=== PATIENT | male | born 1975 | race Caucasian/White ===

== ENCOUNTER 2019-05-10 13:03 | Inpatient (IN) ==
[2019-05-10 14:04] LABS: BILIRUBIN URINE NEGATIVE (NEGATIVE); BLOOD URINE NEGATIVE (NEGATIVE); KETONE URINE 2+(Moderate) mg/dL (NEGATIVE); LEUKOCYTES URINE NEGATIVE (NEGATIVE); NITRITE URINE NEGATIVE (NEGATIVE); PH URINE 6.5; PROTEIN URINE NEGATIVE (NEGATIVE); UROBILINOGEN URINE NORMAL
[2019-05-10 14:05] LABS: CLARITY CLEAR (CLEAR); COLOR YELLOW
[2019-05-10 14:06] LABS: BASO# 0.07 X1000 (0.0-0.2); BASO% 0.4 % (0.0-0.8); EOS# 0.15 X1000 (0.0-0.7); EOS% 0.9 % (0.0-10.0); HEMATOCRIT 41.3 % (42.0-52.0); HEMOGLOBIN 13.6 g/dL (14.0-18.0); IMM GRAN# 0.06 X1000 (0.0-0.04); IMM GRAN% 0.4 % (0.0-0.5); LYMPH# 3.02 X1000 (1.2-3.4); LYMPH% 18.1 % (20.5-51.1); MCHC 32.9 g/dL (33-37); MCV 94.1 FL (81-99); MONO# 1.25 X1000 (0.11-0.59); MONO% 7.5 % (1.7-9.3); MPV 12.3 FL (7.4-10.4); NEUT# 12.16 X1000 (1.4-6.5); NEUT% 72.7 % (42.2-75.2); PLT 195 X1000 (130-400); RBC 4.39 XMIL (4.7-6.1); RDW 14.7 % (11.5-14.5); WBC 16.71 X1000 (4.8-10.8)
[2019-05-10 14:20] LABS: URINE EPITHELIAL CELLS >10 /HPF (<10); URINE RBC <10 /HPF (<10); URINE SOURCE CLEAN CATCH; URINE WBC <10 /HPF (<10)
[2019-05-10 14:21] LABS: URINE BACTERIA 1+ /HFP; URINE CAST NONE SEEN /LPF; URINE CRYSTAL NONE SEEN /HPF; URINE YEAST NONE SEEN /HPF
[2019-05-10 14:35] LABS: ESTIMATED GFR > 60
[2019-05-10 14:48] LABS: AGAP 21; ALBUMIN 3.7 g/dL (3.5-5.0); ALKALINE PHOSPHATASE 122 U/L (32-122); BUN 17 mg/dL (8-22); CALCIUM 8.9 mg/dL (8.8-10.2); CHLORIDE 89 mmol/L (98-107); COSMO 287; CREATININE 1.2 mg/dL (0.7-1.2); GOT 20 U/L (10-34); GPT 29 U/L (10-44); LIPASE 211 U/L (13-60); POTASSIUM 4.6 mmol/L (3.5-5.1); SODIUM 125 mmol/L (136-145); TCO2 16 mmol/L (25-35); TOTAL PROTEIN 7.7 g/dL (6.3-8.3)
[2019-05-10 14:49] LABS: GLUCOSE 709 mg/dL (70-104)
--- NOTE | 2019-05-10 14:50 | PROVIDER DOCUMENTATION ---
HPI-General Adult - General Chief Complaint: Abdominal Pain Stated Complaint: STOMACH PAIN/DIZZY X 3 DAYS Time Seen by Provider: 05/10/19 14:44 Source: patient Allergies/Adverse Reactions: Patient Allergies Allergy/AdvReac Type Severity Reaction Status Date / Time codeine Allergy NAUSEA/VOMI Verified 05/10/19 13:11 TING morphine Allergy NAUSEA/VOMI Verified 05/10/19 13:11 TING Home Medications: Home Medication List Medication Instructions Recorded Confirmed Last Taken Type Amlodipine [Norvasc] 10 mg PO DAILY 05/10/19 05/10/19 Unknown History Diclofenac Sodium 100 mg PO BID 05/10/19 05/10/19 Unknown History Gabapentin 800 mg PO BID 05/10/19 05/10/19 Unknown History Losartan/Hydrochlorothiazide 1 ea PO DAILY 05/10/19 05/10/19 Unknown History [Losartan-Hctz 100-25 mg Tab] PRAVAstatin [Pravachol] 40 mg PO BID 05/10/19 05/10/19 Unknown History Pantoprazole [Protonix] 40 mg PO DAILY@0700 05/10/19 05/10/19 Unknown History Ropinirole [Requip] 1 mg PO HS 05/10/19 05/10/19 Unknown History Sertraline HCl [Zoloft] 100 mg PO DAILY 05/10/19 05/10/19 Unknown History Trazodone HCl 150 mg PO HS 05/10/19 05/10/19 Unknown History - History of Present Illness -Gen Adult Nature of Presenting Problems: Pt. is 44 yom that presents with c/o LUQ abd pain for three days. Pt. states no N/V/D. Pt. reports a fever. Pt. reports a Hx of ulcers. Pt. denies any other complaints. Location of Pain/Injury: reports: abdomen. denies: none, head, face, mouth, nec k, chest, upper extremity, hand(s), back, pelvis, genitalia, lower extremity, feet, upper body, lower body, generalized, other Pain Radiation: reports: no radiation. denies: arm(s), back, buttocks, chest, epigastric, feet, groin, jaw, flank (L), legs (lower), LLQ, LUQ, neck, periumbilical, flank (R), RLQ, RUQ, shoulder(s), scapula, scrotal, sternal notch, suprapubic, legs (upper), urethral, vaginal, other Quality of Pain: reports: aching. denies: burning, pressure, tightness Severity: reports: moderate. denies: mild, severe Onset/Duration: reports: gradual, 2 days ago Timing: reports: still present. denies: improving, resolved prior to arrival, getting worse Context/Activities at Onset: reports: none. denies: light activity, moderate a ctivity, vigorous activity, recent emotional stress, recent physical stress, recent trauma history, possible bad food, cold exposure, eating, out of country travel, rest, sleep, sexual activity, other Modifying Factors: improves with: nothing Associated Symptoms: reports: other (abd pain). denies: denies symptoms, anxiety, arm pain, back/neck pain, chest pain, constipation, cough, diaphoresis, diarrhea, dizziness, EENT symptoms, fatigue, fever/chills, genitourinary prob lems, headaches, heartburn, joint pain, loss of appetite, malaise, muscle aches, sinus congestion/drainage, nausea, rash, seizure, shortness of breath, sensory/motor loss, pain with inspiration, swelling/mass in abdomen, syncope, vomiting, weakness, trouble walking Similar Symptoms Previously?: Yes Recently seen or treated by another doctor?: No Review of Systems - Adult - REVIEW OF SYSTEMS - ADULT Constitutional: reports: no symptoms reported Eyes: reports: no symptoms reported Ears, Nose, Mouth & Throat: reports: no symptoms reported Cardiovascular: reports: no symptoms reported Respiratory: reports: no symptoms reported Gastrointestinal: reports: see HPI, abdominal pain, rectal bleeding. denies: constipation, diarrhea, frequent heartburn, vomiting Genitourinary: reports: no symptoms reported Musculoskeletal: reports: no symptoms reported Integumentary: reports: no symptoms reported Neurological: reports: no symptoms reported Psychiatric: reports: no symptoms reported Past History - Adult - PAST MEDICAL HISTORY-ADULT Review of Records: reports: Old Records Reviewed, Nursing Assessment Review, Medications Reviewed, Social history reviewed & non-contributory. Major Childhood Illnesses: reports: denies history Cardiovascular: reports: HTN Respiratory: reports: denies history Gastrointestinal: reports: denies history Obstetrical/Gynecological: reports: denies history Genitourinary: reports: denies history Musculoskeletal: reports: denies history Neurological: reports: denies history Endocrine/Immune: reports: denies history Other Conditions: reports: denies history - PRIOR SURGERIES/PROCEDURES Surgical/Procedure History: reports: cholecystectomy, other (wisdom teeth) - IMMUNIZATION STATUS Childhood Immunizations: See Nurse Assessment Flu Vaccine: See Nurse Assessment - FAMILY HISTORY Family History: reviewed, not pertinent - SOCIAL HISTORY Smoking: cigarettes, greater than 1 pack/day Provider spent 3-5 mins advising pt. on dangers of tobacco.: Discussed manners to quit use, and f/u contacts for add'l counseling. Physical Exam-General - PHYSICAL EXAM-ADULT Initial Vital Signs Reviewed: Yes - CONSTITUTIONAL General Appearance: alert, mild distress, obese. negative: anxious, obtunded, combative - EYES Eyes: PERRL/EOMI, pink conjunctivae - HEAD, EARS, NOSE, MOUTH & THROAT HENMT: normocephalic/atraumatic, moist mucous membranes - NECK Neck: non-tender, full range of motion, supple, normal inspection - RESPIRATORY Respiratory: lungs clear, normal breath sounds - CARDIOVASCULAR Cardiovascular: regular rate, rhythm, no edema, tachycardia - GASTROINTESTINAL (ABDOMEN) Abdominal Exam: soft, tenderness, hernia. negative: distended, guarding, rigid, rebound, mass - LYMPHATIC Lymphatic: no adenopathy. negative: axilla node tender, cervical node tenderness - MUSCULOSKELETAL Back Exam: normal inspection, no CVA tenderness, no vertebral tenderness Extremity: normal range of motion, non-tender, normal gait, normal inspection Peripheral Pulses: radial (R): 2+, radial (L): 2+ - SKIN Integumentary: normal color, normal turgor, warm/dry - NEUROLOGIC Neurologic: grossly normal, no motor/sensory deficits - PSYCHIATRIC Psych/Mental Status: normal mood/affect, normal thought content, normal thought process, oriented x 3. negative: anxious, paranoid, tearful Progress - PLAN OF CARE/RESULTS Progress/Plan/Lab Results: Vital Signs - 8 hr 05/10/19 13:05 Temperature 97.6 F Pulse Rate 112 H Respiratory Rate 18 Blood Pressure 105/73 O2 Sat by Pulse Oximetry 95 Laboratory Results - last 24 hr 05/10/19 05/10/19 05/10/19 13:32 13:42 13:42 WBC 16.71 H RBC 4.39 L Hgb 13.6 L Hct 41.3 L MCV 94.1 MCH 31.0 MCHC 32.9 L RDW Std Deviation 14.7 H Plt Count 195 MPV 12.3 H Immature Gran % (Auto) 0.4 Neut % (Auto) 72.7 Lymph % (Auto) 18.1 L [place] % (Auto) 7.5 Eos % (Auto) 0.9 Baso % (Auto) 0.4 Immature Gran # (Auto) 0.06 H Neut # (Auto) 12.16 H Lymph # (Auto) 3.02 [place] # (Auto) 1.25 H Eos # (Auto) 0.15 Baso # (Auto) 0.07 Estimated GFR/1.73 m2 Amylase 84 Urine Source CLEAN CATCH Urine Color YELLOW Urine Clarity CLEAR Urine pH 6.5 Ur Specific [place] 1.000 Urine Protein NEGATIVE Urine Ketones 2+(Moderate) A Urine Blood NEGATIVE Urine Nitrite NEGATIVE Urine Bilirubin NEGATIVE Urine Urobilinogen NORMAL Urine Microscopic RBC <10 Urine WBC NEGATIVE Urine Microscopic WBC <10 Ur Epithelial Cells >10 A Urine Crystals NONE SEEN Urine Bacteria 1+ Urine Casts NONE SEEN Urine Yeast NONE SEEN Urine Glucose 3+(500 mg/dL) A 05/10/19 13:42 WBC RBC Hgb Hct MCV MCH MCHC RDW Std Deviation Plt Count MPV Immature Gran % (Auto) Neut % (Auto) Lymph % (Auto) [place] % (Auto) Eos % (Auto) Baso % (Auto) Immature Gran # (Auto) Neut # (Auto) Lymph # (Auto) [place] # (Auto) Eos # (Auto) Baso # (Auto) Estimated GFR/1.73 m2 > 60 Amylase Urine Source Urine Color Urine Clarity Urine pH Ur Specific [place] Urine Protein Urine Ketones Urine Blood Urine Nitrite Urine Bilirubin Urine Urobilinogen Urine Microscopic RBC Urine WBC Urine Microscopic WBC Ur Epithelial Cells Urine Crystals Urine Bacteria Urine Casts Urine Yeast Urine Glucose Orders Category Date Time Status Finger Stick Blood Sugar (ED) DIRECTED Care 05/10/19 13:16 Active Saline Loc DIRECTED Care 05/10/19 13:12 Active NPO Diet 05/10/19 13:[address] ABD/PELVIS W/IV CONT ONLY [CT] Stat Exams 05/10/19 14:46 Ordered AMYLASE [CHEM] Stat Lab 05/10/19 13:42 Completed CBC WITH ELECTRONIC DIFF [HEME] Stat Lab 05/10/19 13:42 Completed COMPREHENSIVE METABOLIC PANEL [CHEM] Stat Lab 05/10/19 13:42 Results LIPASE [CHEM] Stat Lab 05/10/19 13:[address] W/POSS RFLX CULT [URINALYSIS] Stat Lab 05/10/19 13:32 Completed Corrected sodium is 140. Discussed results and plan of care with patient. Patient agrees with plan and verbalizes understanding. Result Diagrams: 05/10/19 13:42 05/10/19 13:42 - CT/MRI 1 CT Study: Abdomen ([facility] - [address] , [address], [place] [address] [facility] - [address] [place] [address] Department of Imaging Patient: KAI SIMMONS [facility] Date: 05/10/19MR#: [id number] : 1975ADM Status: REG ERAcc#: [id number] Age/Sex: 44/MRoom/Bed: Loc: P.ED Ordering Physician: Bo Guan Family Physician: Hunter Hillman Jr, MD Reason for Procedure: LUQ abd pain Signed EXAM: CT ABD/PELVIS W/IV CONT ONLY - 05/10/2019 HISTORY: LUQ abd pain TECHNIQUE: CT abdomen/pelvis with intravenous contrast. No oral contrast administered per request of the referring provider. COMPARISON: None. FINDINGS: There is a 10 mm noncalcified pleural-based nodule at the posterior left lung base. There is hepatomegaly with fatty infiltration of liver. There is no focal liver lesion identified. The spleen and adrenal glands are unremarkable. The gallbladder surgically absent. There are inflammatory changes at the left upper quadrant which appears to originate at the distal pancreas. This is suspicious for acute pancreatitis. There is no discrete pancreatic necrosis or pseudocyst identified. Mass lesion at the pancreatic tail cannot be entirely excluded. The inflammatory changes extend to the nearby splenic flexure of the colon, which contains diverticuli. There is no discrete diverticulitis identified, however. There are additional uncomplicated diverticuli along the left colon. The bilateral kidneys enhance homogeneously. There is no hydronephrosis. There are no substantially enlarged lymph nodes identified. There is mild ectasia of the distal aorta at 2.7 cm. There is no evidence of bowel obstruction. The appendix is unremarkable. There is no free air, substantial free fluid, or abscess identified. IMPRESSION: Inflammatory changes at left upper quadrant. These appear to originate at the tail of the pancreas and are suspicious for acute pancreatitis. There is no discrete pancreatic necrosis or pseudocyst identified. The possibility of mass lesion at the pancreatic tail cannot be entirely excluded, however. The left upper quadrant inflammatory changes extend to the nearby splenic flexure the the colon, which has diverticulosis. There is no discrete diverticulitis identified, however. Hepatomegaly with fatty infiltration of liver. Nonspecific 1 cm noncalcified nodule at posterior left lung base. This exam was performed using automated exposure control, adjustment of mA or kV according to patient size, and/or use of iterative reconstruction technique. Electronically signed by Ozzie Burk 05/10/2019 4:55 PM 05/10/19 1655 Interpreting Physician: Ozzie Burk MD Dictated Date/Time: 05/10/19 1642 cc: Bo Guan; Hunter Hillman Jr, MD), Pelvis CT Results: See note - CONSULTS/PCP/HOSPITALIST Notification #1 *Consult/PCP/Hospitalist*: Summer for Dr. Horne Time Discussed: 17:12 Reason/Comments: Admission Consult Disposition: Will see in ED, Admit Departure - Departure Date of Disposition Decision: 05/10/19 Time of Disposition Decision: 17:07 DIAGNOSIS: Hyperglycemia Pancreatitis Qualifiers: Chronicity: acute Pancreatitis type: unspecified pancreatitis type Acute p ancreatitis complication: unspecified Qualified Code(s): K85.90 - Acute pancreatitis without necrosis or infection, unspecified Leukocytosis Qualifiers: Leukocytosis type: unspecified Qualified Code(s): D72.829 - Elevated white blood cell count, unspecified Disposition: ADMITTED INPATIENT 09 Certified Medical Emergency: Emergent Condition: Stable Referrals and Follow-Ups: Hunter Hillman Jr, MD [Primary Care Provider] - - Critical Care Note This patient required my direct & personal management of CC.: Yes Total Time (mins): 35 Critical Care Statement: This patient required my direct personal management to treat or rule out processes, the absence of which, could potentiallly result in sudden, clinically significant life or limb threatening deterioration. Attestation - Physician/ ROSY Attestation Patient care was provided by Advanced Practice Provider:: Yes Advanced Practice Provider:: Bo Guan Advanced Practice Provider documentation review:: The Mid-level provider documentation, treatment plan and medical decision making was reviewed by the physician who agrees with all treatment and medical decision making by the MLP. The physician spent face to face time with patient:: No Advanced Practice Provider documentation review:: Supervising physician onsite and consulted in the evaluation and care of this patient. The physician did not have a face to face encounter with the patient.
[2019-05-10] MEDS ORDERED: ZOFRAN IV ONE (15:02)
[2019-05-10] MEDS ORDERED: NS 1,000 ML IV ONE (15:02)
[2019-05-10] MEDS ORDERED: HUMULIN R IV ONE (15:03)
[2019-05-10] MEDS ORDERED: HUMULIN R (PARKWAY) ONE (15:45)
[2019-05-10 16:13] LABS: BE -7.4 mmoll (-3.0-3.0); BLOOD TYPE ARTERIAL; HCO3-(ACT) 18.9 mmoll (20.0-26.0); METHB 0.2 % (0.0-1.5); PCO2(98.6) 27 mmHg (35-45); PO2(98.6) 74 mmHg (60-100); SAMPLE BLOOD; SAO2 94.3 % (95.0-100.0); THB 14.7 g/dL (11.5-17.4); pH(98.6) 7.38 (7.35-7.45)
[2019-05-10 16:18] LABS: MODALITY ROOM AIR; O2(CT) 18.5 mL/dL (15.0-23.0); O2HB 89.4 % (95.0-99.0)
[2019-05-10 16:19] LABS: ALLEN TEST YES
--- NOTE | 2019-05-10 16:57 | Diag Imaging Result Doc PS360 ---
EXAM: CT ABD/PELVIS W/IV CONT ONLY - 05/10/2019 HISTORY: LUQ abd pain TECHNIQUE: CT abdomen/pelvis with intravenous contrast. No oral contrast administered per request of the referring provider. COMPARISON: None. FINDINGS: There is a 10 mm noncalcified pleural-based nodule at the posterior left lung base. There is hepatomegaly with fatty infiltration of liver. There is no focal liver lesion identified. The spleen and adrenal glands are unremarkable. The gallbladder surgically absent. There are inflammatory changes at the left upper quadrant which appears to originate at the distal pancreas. This is suspicious for acute pancreatitis. There is no discrete pancreatic necrosis or pseudocyst identified. Mass lesion at the pancreatic tail cannot be entirely excluded. The inflammatory changes extend to the nearby splenic flexure of the colon, which contains diverticuli. There is no discrete diverticulitis identified, however. There are additional uncomplicated diverticuli along the left colon. The bilateral kidneys enhance homogeneously. There is no hydronephrosis. There are no substantially enlarged lymph nodes identified. There is mild ectasia of the distal aorta at 2.7 cm. There is no evidence of bowel obstruction. The appendix is unremarkable. There is no free air, substantial free fluid, or abscess identified. IMPRESSION: Inflammatory changes at left upper quadrant. These appear to originate at the tail of the pancreas and are suspicious for acute pancreatitis. There is no discrete pancreatic necrosis or pseudocyst identified. The possibility of mass lesion at the pancreatic tail cannot be entirely excluded, however. The left upper quadrant inflammatory changes extend to the nearby splenic flexure the the colon, which has diverticulosis. There is no discrete diverticulitis identified, however. Hepatomegaly with fatty infiltration of liver. Nonspecific 1 cm noncalcified nodule at posterior left lung base. This exam was performed using automated exposure control, adjustment of mA or kV according to patient size, and/or use of iterative reconstruction technique. Electronically signed by Ozzie Burk 05/10/2019 4:55 PM
[2019-05-10] MEDS ORDERED: ZOFRAN IV PRN (18:07)
[2019-05-10] MEDS ORDERED: SODIUM CHLORIDE 0.9% INJ SCH (18:15)
[2019-05-10] MEDS ORDERED: PROTONIX IV SCH (18:15)
--- NOTE | 2019-05-10 18:35 | HISTORY AND PHYSICAL ---
ADDENDUM: I saw the patient [id number] while patient was there at the emergency department and fully agree with the assessment, plan of nurse practitioner Emma Santo. This is a 44-year-old gentleman who presented emergency room with epigastric discomfort and has been found to have leukocytosis along with significant diabetes with glucose of 700, amylase levels are normal at 84 but lipase levels are elevated 201. CT scan of abdomen, pelvis was obtained that showed inflammatory changes at left upper quadrant which appeared to originate at the tail of the pancreas and are suspicious for acute pancreatitis. The patient will be admitted to intensive care unit and will be treated with subcutaneous insulin along with judicious IV fluids and broad- spectrum antibiotics along with opioid analgesics. We will keep him NPO and monitor him over there. Further recommendation will be as per hospital course. cc: Burton Horne MD
[2019-05-10] MEDS: HUMULIN R (PARKWAY) SUBQ SCH ×3 (18:36→22:30)
[2019-05-10] MEDS: NS 1,000 ML IV SCH (18:37)
[2019-05-10] MEDS: ZOSYN 3.375 GM in NS 50 ML IV SCH (18:37)
--- NOTE | 2019-05-10 19:40 | HISTORY AND PHYSICAL ---
PRIMARY CARE: Dr. Hillman. CHIEF COMPLAINT: Abdominal pain. HISTORY OF PRESENT ILLNESS: Mr. Grant is a 44-year-old male who states that he started having abdominal pain 3 days ago. He states that his pain is a sharp pain. It is in the left side of his abdomen. He denies any chest pain. He denies any nausea, vomiting, or diarrhea. He states he has had some blurred vision. He denies any dysuria or hematuria. He denies any constipation. He states he does occasionally have some blood in his stool and he is noted to have hemorrhoids. The patient does have a past medical history of pancreatitis, GERD, hypertension, hyperlipidemia, arthritis, and peripheral neuropathy. The patient is not having any shortness of breath at this time. He is stating he is having less abdominal pain. His abdomen is very tender to the touch. Laboratory findings in the ER show a white blood cell count of 16.71. Blood gases show CO2 of 27, bicarb of 18.9, oxyhemoglobin of 89.4, and a carboxyhemoglobin of 5, with O2 saturation of 94.3. Chemistry shows a sodium of 125, a chloride of 89, BUN is 17, and creatinine of 1.2, glucose of 709, lipase of 211, amylase of 84. CT of the abdomen and pelvis shows inflammatory changes of the left upper quadrant that appear to originate at the tail of the pancreas, and are suspicious for acute pancreatitis. PAST MEDICAL HISTORY: 1. GERD. 2. Pancreatitis. 3. Hypertension. 4. Hyperlipidemia. 5. Arthritis. 6. Peripheral neuropathy. 7. Chronic pain. PAST SURGICAL HISTORY: Cholecystectomy. FAMILY HISTORY: Not significant at this time. SOCIAL HISTORY: The patient states that he smokes 1 pack of cigarettes per day and has for greater than 30 years. The patient states he used to drink alcohol, but he quit 10 years ago. He denies any illicit drug abuse. ALLERGIES: Codeine, morphine. MEDICATIONS: 1. Protonix 40 mg p.o. daily. 2. Norvasc 10 mg p.o. daily. 3. Diclofenac sodium 100 mg p.o. b.i.d. 4. Gabapentin 800 mg p.o. b.i.d. 5. Pravachol 40 mg p.o. b.i.d. 6. Requip 1 mg p.o. at bedtime. 7. Zoloft 100 mg p.o. daily. 8. Losartan/hydrochlorothiazide 100/25 mg p.o. daily. 9. Trazodone 150 mg p.o. at bedtime. LABS AND DIAGNOSTICS: Sodium 125, potassium 4.6, chloride 89, carbon dioxide 16, anion gap 21, BUN 17, creatinine 1.2, estimated GFR greater than 60, glucose is 709, calcium is 8.9, total bilirubin is 0.7, AST is 20, ALT is 29, alkaline phosphatase is 122, amylase is 84, lipase is 211. White blood cell count is 16.71, red blood cell count is 4.39, hemoglobin is 13.6, hematocrit is 41.3, platelet count is 195,000. Blood gas: PH is 7.38, CO2 27, pO2 is 74, bicarb is 18.9, oxyhemoglobin is 89.4, carboxyhemoglobin is 5, O2 saturation is 94.3%. Lactate is 1.5. This is on room air. Urinalysis shows ketones to be 2+, bacteria is 1+, glucose is 3+. CT of the abdomen and pelvis shows inflammatory changes of the left upper quadrant, and these appear to originate at the tail of the pancreas and are suspicious of acute pancreatitis. There is no discrete pain, pancreatic necrosis, or pseudocyst identified. The possibility of mass lesion of the pancreatic tail cannot be entirely excluded, however. In the left upper quadrant, inflammatory changes extend to the nearby splenic flexure to the colon which has diverticulosis. There is no discrete diverticulitis identified. Hepatomegaly with fatty infiltration of the liver. A nonspecific 1 cm noncalcified nodule at the posterior left lung base. REVIEW OF SYSTEMS: A 10 point review of systems has been obtained. All are negative except for as stated above in HPI. PHYSICAL EXAMINATION: VITAL SIGNS: Temperature 97.6 degrees, pulse rate 108, respiratory rate 24, blood pressure 120/75, O2 saturation 93% on room air, weight 320 pounds, height 5 feet 11 inches. GENERAL: This is a 44-year-old male who is obese, who is lying in the ER stretcher. He is well nourished, well developed. He is in no acute distress. HEENT: Atraumatic, normocephalic. Pupils equal, round, reactive to light. Sclerae anicteric. Mucous membranes are moist. NECK: Supple. No lymphadenopathy. Trachea is midline. No JVD. No thyromegaly. No bruits. CARDIOVASCULAR: Regular rate and rhythm. No murmurs, gallops, or rubs appreciated. RESPIRATORY: Lung sounds are clear with equal chest excursion. Respirations are nonlabored. No accessory muscle usage. GI: Abdomen is soft. It is tender to the left side. It is nondistended. Bowel sounds are present x4. NEUROLOGIC: Cranial nerves 2 through 12 are intact. The patient is awake, alert, oriented, and able to follow all commands appropriately. MUSCULOSKELETAL: Full distal strength noted. No abnormalities in gait. No deformities. EXTREMITIES: No clubbing, no cyanosis, no edema. DP and PT pulses are present and palpable. SKIN: Warm, dry, and intact. No rashes, bruises, diaphoresis noted. ASSESSMENT AND PLAN: 1. Acute pancreatitis. We are going to admit this patient to the ICU unit. We are going to place him on intravenous fluid hydration of normal saline at 125 mL an hour. He did receive a 1L bolus in the emergency room. We are going to repeat his labs in the morning and a chest x- ray. We are going to provide him with Dilaudid 0.5 mg every 4 to 6 hours as needed for his pain. We are going to keep him at nothing by mouth at this time. He can have a sip of water with his oral medications, but otherwise needs to be nothing by mouth. He does have Zofran ordered for his nausea. 2. Hyperglycemia. The patient is not a known diabetic. We are going to start him on fingerstick blood sugar checks every 2 hours. I provided him with sliding scale Humulin insulin, moderate scale. I am going to check an A1c on this patient to see if it does come back to be elevated. Likely, this is due to his pancreatitis. 3. Leukocytosis. The patient has a white blood cell count elevated at 16.71. We have started him on Zosyn for intravenous antibiotics. I have also started him on intravenous fluid hydration. The likely source is his pancreatitis. 4. Hyponatremia. We are starting the patient on normal saline at 125 mL an hour. He did receive a 1 L bolus of normal saline in the emergency room. We are going to recheck his labs in the morning. We will be observing this patient in the ICU. 5. Obesity. 6. Hypertension. I have restarted his home medications for his blood pressure. His blood pressure is stable at this time. However, he did not take any medications this morning. 7. Peripheral neuropathy. I have restarted his home Neurontin. 8. Gastroesophageal reflux disease. The patient is on Protonix at home. I have restarted his home Protonix. This should cover his gastrointestinal prophylaxis. 9. Arthritis. The patient does take diclofenac at home for his arthritis. I have restarted this medication. He can also have Dilaudid for his pain in his abdomen for the pancreatitis to help with his arthritis also. 10. Deep venous thrombosis prophylaxis. I have started this patient on Lovenox daily. We are going to admit this patient to the ICU unit. We will place him on a personnel monitor. We are going to repeat his labs in the morning and a chest x-ray. We are going to provide him with intravenous fluid hydration and start him on intravenous antibiotics for his pancreatitis. We are going to give him Dilaudid for pain control. We are going to be rechecking his blood sugars every 2 hours and providing him with sliding scale insulin. I am going to check a hemoglobin A1c on this patient. We are going to keep this patient at nothing by mouth at this time. He can have a sip of water with his medications. He can also have Zofran for nausea. Dictated by CAMACHO Jean-Baptiste for Burton Horne MD cc: MD Dr. Rafy Adame
[2019-05-10] MEDS ORDERED: NS 100 ML ONE (20:46)
[2019-05-10] MEDS ORDERED: PRAVACHOL PO SCH (21:00)
[2019-05-10] MEDS: LOVENOX SUBQ SCH (21:55)
[2019-05-10] MEDS: NICODERM PATCH TD SCH (21:55)
[2019-05-10] MEDS: DESYREL PO SCH (21:56)
[2019-05-10] MEDS: REQUIP PO SCH (21:57)
[2019-05-10] MEDS: PRAVACHOL PO SCH (21:57)
[2019-05-10] MEDS: NEURONTIN PO SCH (21:57)
[2019-05-10 22:01] LABS: ESTIMATED GFR > 60
[2019-05-10 22:10] LABS: AGAP 13; ALBUMIN 3.6 g/dL (3.5-5.0); ALKALINE PHOSPHATASE 105 U/L (32-122); BUN 16 mg/dL (8-22); CALCIUM 8.7 mg/dL (8.8-10.2); CHLORIDE 99 mmol/L (98-107); COSMO 287; CREATININE 1.2 mg/dL (0.7-1.2); GOT 16 U/L (10-34); GPT 24 U/L (10-44); MAGNESIUM 1.8 mg/dL (1.5-2.7); POTASSIUM 4.5 mmol/L (3.5-5.1); SODIUM 134 mmol/L (136-145); TCO2 22 mmol/L (25-35); TOTAL PROTEIN 7.2 g/dL (6.3-8.3)
[2019-05-10 22:12] LABS: GLUCOSE 416 mg/dL (70-104)
[2019-05-10] MEDS: DUONEB (A & A) INH SCH (22:21)
[2019-05-11] MEDS: HUMULIN R (PARKWAY) SUBQ SCH ×8 (00:03→11:31)
[2019-05-11] MEDS: DUONEB (A & A) INH SCH ×6 (00:04→22:24)
[2019-05-11] MEDS: DILAUDID IV PRN ×4 (00:05→22:22)
[2019-05-11] MEDS: ZOSYN 3.375 GM in NS 50 ML IV SCH ×4 (01:15→17:27)
[2019-05-11] MEDS: NS 1,000 ML IV SCH ×4 (02:00→17:27)
[2019-05-11] MEDS: PROTONIX PO SCH (06:17)
[2019-05-11 06:41] LABS: BASO# 0.04 X1000 (0.0-0.2); BASO% 0.3 % (0.0-0.8); EOS# 0.26 X1000 (0.0-0.7); EOS% 1.8 % (0.0-10.0); HEMATOCRIT 39.8 % (42.0-52.0); HEMOGLOBIN 12.6 g/dL (14.0-18.0); IMM GRAN# 0.03 X1000 (0.0-0.04); IMM GRAN% 0.2 % (0.0-0.5); LYMPH# 2.33 X1000 (1.2-3.4); LYMPH% 15.7 % (20.5-51.1); MCH 30.3 PG (27-31); MCHC 31.7 g/dL (33-37); MCV 95.7 FL (81-99); MONO# 1.14 X1000 (0.11-0.59); MONO% 7.7 % (1.7-9.3); MPV 12.5 FL (7.4-10.4); NEUT% 74.3 % (42.2-75.2); PLT 194 X1000 (130-400); RBC 4.16 XMIL (4.7-6.1); RDW 14.9 % (11.5-14.5)
[2019-05-11 07:06] LABS: CHOLESTEROL 143 mg/dL (0-200); HDL 19 mg/dL (35-55); TRIGLYCERIDES 705 mg/dL (39-160)
[2019-05-11 07:08] LABS: HEMOGLOBIN A1C 9.8 % (4.8-6.0)
--- NOTE | 2019-05-11 07:45 | Diag Imaging Result Doc PS360 ---
EXAM: CHEST-PORTABLE INDICATION: dyspnea TECHNIQUE: One view COMPARISON: None. FINDINGS: Inspiration is suboptimal. There is suggestion of mild atelectasis at the right lung base. The lungs are grossly clear, otherwise. There is no discrete pleural fluid collection or pneumothorax. The cardiomediastinal silhouette and central vasculature are grossly unremarkable. IMPRESSION: Suggestion of mild atelectasis at the right lung base. Essentially unremarkable, otherwise. Electronically signed by Juan Pablo Sloan 05/11/2019 7:43 AM
[2019-05-11] MEDS: NEURONTIN PO SCH ×2 (08:49→20:56)
[2019-05-11] MEDS: HYDROCHLOROTHIAZIDE PO SCH (08:49)
[2019-05-11] MEDS: PRAVACHOL PO SCH ×2 (08:50→20:56)
[2019-05-11] MEDS: ZOLOFT PO SCH (08:50)
[2019-05-11] MEDS: COZAAR PO SCH (08:50)
[2019-05-11] MEDS ORDERED: NORVASC PO SCH (09:00)
[2019-05-11] MEDS ORDERED: HYZAAR 50/12.5 MG PO SCH ×2 (09:00)
[2019-05-11] MEDS ORDERED: CATAFLAM PO SCH (09:00)
[2019-05-11] MEDS: NICODERM PATCH TD SCH (09:21)
[2019-05-11] MEDS: CATAFLAM PO SCH ×2 (09:26→20:56)
[2019-05-11] MEDS ORDERED: LANTUS INSULIN SUBQ ONE (12:30)
--- NOTE | 2019-05-11 12:33 | PROGRESS NOTE ---
DATE: 05/11/2019 SUBJECTIVE: The patient feels much better this morning and denies having any acute complaints. OBJECTIVE: Vital signs: Temperature is 98.2 degrees, pulse 96 per minute, respiratory rate 18 per minute, blood pressure 91/71, pulse oximetry 93% on room air. General: The patient is alert and oriented x3. He does not appear to be in any acute distress. Cardiovascular: First and second heart sounds are audible without any murmurs, rubs or gallops. Respiratory: Bilateral lung air entry is good without any rales or rhonchi. Gastrointestinal: Abdomen is soft and nondistended. Normal bowel sounds are present. The patient is morbidly obese. DIAGNOSTIC DATA: CBC showed WBC count of 14.80, hemoglobin 12.6, hematocrit 39.8, and platelet count 194. His CBC shows slightly improvement of leukocytosis from 16.71 to 14.80. Chemistry showed glucose level of 416. The rest of the CMP is nondiagnostic. Sodium levels have improved from 125 to 134 this morning. I believe that was secondary to hyperglycemia. IMPRESSION: 1. Acute pancreatitis. 2. Uncontrolled type 2 diabetes mellitus. 3. Hypertension. 4. Morbid obesity. PLAN: The patient will continue to receive regular insulin as per sliding scale, as we are going to continue giving him broad spectrum antibiotics of Zosyn intravenously. We will also keep giving him IV fluids, and since his condition has improved, I am going to start him on clear liquid diet today. His abdominal tenderness and discomfort have completely resolved. We will keep giving him the rest of the supportive care. His blood pressure is somewhat low, and therefore, I am going to decrease the dose of amlodipine to 5 mg a day. Further recommendations will be given as per hospital course. cc: Burton Horne MD
[2019-05-11] MEDS: ZYRTEC PO SCH (15:33)
[2019-05-11] MEDS: HUMALOG (PARKWAY) SUBQ SCH ×2 (15:37→20:55)
[2019-05-11] MEDS: LOVENOX SUBQ SCH (17:27)
[2019-05-11] MEDS: LANTUS INSULIN SUBQ SCH (20:54)
[2019-05-11] MEDS: DESYREL PO SCH (20:55)
[2019-05-11] MEDS: REQUIP PO SCH (20:55)
[2019-05-12] MEDS: ZOSYN 3.375 GM in NS 50 ML IV SCH ×2 (01:07→06:25)
[2019-05-12] MEDS: DUONEB (A & A) INH SCH ×2 (01:25→04:08)
[2019-05-12] MEDS: NS 1,000 ML IV SCH (04:33)
[2019-05-12] MEDS: HUMALOG (PARKWAY) SUBQ SCH (06:24)
[2019-05-12] MEDS: PROTONIX PO SCH (06:25)
[2019-05-12 07:49] LABS: BASO# 0.04 X1000 (0.0-0.2); BASO% 0.3 % (0.0-0.8); EOS# 0.36 X1000 (0.0-0.7); EOS% 2.9 % (0.0-10.0); HEMATOCRIT 40.1 % (42.0-52.0); HEMOGLOBIN 12.5 g/dL (14.0-18.0); IMM GRAN# 0.06 X1000 (0.0-0.04); IMM GRAN% 0.5 % (0.0-0.5); LYMPH# 2.33 X1000 (1.2-3.4); LYMPH% 18.9 % (20.5-51.1); MCHC 31.2 g/dL (33-37); MCV 96.4 FL (81-99); MONO# 0.96 X1000 (0.11-0.59); MONO% 7.8 % (1.7-9.3); MPV 11.8 FL (7.4-10.4); NEUT# 8.56 X1000 (1.4-6.5); NEUT% 69.6 % (42.2-75.2); PLT 183 X1000 (130-400); RBC 4.16 XMIL (4.7-6.1); RDW 14.9 % (11.5-14.5); WBC 12.31 X1000 (4.8-10.8)
[2019-05-12 08:03] LABS: CALCIUM 8.4 mg/dL (8.8-10.2); CREATININE 1.6 mg/dL (0.7-1.2)
[2019-05-12] MEDS: ZYRTEC PO SCH (08:19)
[2019-05-12] MEDS: CATAFLAM PO SCH (08:19)
[2019-05-12] MEDS: ZOLOFT PO SCH (08:19)
[2019-05-12] MEDS: LANTUS INSULIN SUBQ SCH (08:19)
[2019-05-12] MEDS: HYDROCHLOROTHIAZIDE PO SCH (08:19)
[2019-05-12] MEDS: COZAAR PO SCH (08:20)
[2019-05-12] MEDS: NEURONTIN PO SCH (08:20)
[2019-05-12] MEDS: NICODERM PATCH TD SCH (08:29)
[2019-05-12] MEDS: PRAVACHOL PO SCH (08:55)
[2019-05-12] MEDS ORDERED: REQUIP PO SCH (09:00)
[2019-05-12] MEDS ORDERED: NORVASC PO SCH (09:00)
[2019-05-12 12:26] VITALS: BP 113/64
--- NOTE | 2019-05-12 17:20 | DISCHARGE SUMMARY ---
ADMISSION DATE: 05/10/2019 DISCHARGE DATE: 05/12/2019 ADMISSION DIAGNOSES: 1. Acute pancreatitis. 2. Hyperglycemia. The hyperglycemia was diagnosed as diabetes. 3. Leukocytosis. 4. Hyponatremia. 5. Obesity. 6. Hypertension. 7. Peripheral neuropathy. 8. Gastroesophageal reflux disease. 9. Arthritis. DISCHARGE DIAGNOSES: 1. Acute pancreatitis. 2. Newly diagnosed uncontrolled type 2 diabetes mellitus. 3. Hypertension. 4. Morbid obesity. CONSULTATIONS: None. SURGERIES/PROCEDURE: None. HOSPITAL COURSE: On 05/10/2019, Mr. Scott Grant, a 44-year-old male, presented to [facility] ER with abdominal cramps that had lasted for about 3 days. They were sharp in nature. Left side of the abdomen was the location. He denied chest pain, nausea, vomiting, or diarrhea. He did have blurred vision, dysuria, hematuria. Did say to sometimes have blood in the stool but has hemorrhoids. He has a past medical history of actually having pancreatitis but denied having a history of diabetes. His blood glucose level was 709, although never diagnosed as DKA. His anion gap was not too abnormal; it was a little elevated at 21. He was not acidotic, and his acetone level was negative. So, he was transferred to the ICU for closer observation and blood glucose control. Placed on IV fluids, pain medication including Dilaudid, and they actually kept him n.p.o. His hemoglobin A1c came back at 9.8. He was also diagnosed with acute pancreatitis. Lipase level was 111. Amylase is normal. He had abdominopelvic CT, and the inflammation was located at the tail of the pancreas which was suspicious for acute pancreatitis. He was monitored in the ICU, eventually to the medical floor. Blood glucose levels were controlled. He was on a sliding scale insulin, received some Zosyn while he was here. Symptoms discharge, and he is discharged home today. DISCHARGE VITAL SIGNS: Temperature 97.7 degrees, heart rate 88, respiratory rate 20, blood pressure 113/64, O2 saturation 95% on room air. DISCHARGE LAB DATA: White blood cells 12,000, hemoglobin 12, hematocrit 40, platelet count 183,000. Sodium 134, potassium 4.0, BUN 18, creatinine 1.6. Glucose 253. Hemoglobin A1c was 9.8. Calcium 8.4. Triglycerides were quite elevated, which was probably the cause of the pancreatitis. His triglycerides were 705. Amylase 41, lipase 32. PERTINENT IMAGING: Had abdominopelvic CT: Inflammatory changes at the left upper quadrant originate from the tail of the pancreas suspicious for acute pancreatitis. Hepatomegaly with fatty liver. There is a nonspecific 1 cm noncalcified nodule at the posterior left lung base. There was a chest x-ray with suggestion of mild atelectasis of the lung base. DISCHARGE MEDICATIONS: 1. Diclofenac sodium 100 mg p.o. twice daily. 2. Neurontin 800 mg p.o. twice daily. 3. Norvasc 10 mg p.o. daily. 4. Pravachol 40 mg p.o. twice daily. 5. Protonix 40 mg p.o. daily. 6. Requip 2 mg p.o. twice daily. 7. Trazodone 150 mg p.o. nightly. 8. Zoloft 100 mg p.o. daily. 9. Tricor 145 mg p.o. nightly. 10. Metformin 500 mg p.o., to take half a tablet daily for a week, then 1 tablet daily for a week, and then 1 tablet twice daily continuously. 11. Ultram 50 mg p.o. every 6 hours p.r.n. DISCHARGE DIET: Diabetic. DISCHARGE ACTIVITY: As tolerated. DISCHARGE PHYSICIAN FOLLOWUP: With Dr. Hunter Hillman. Call office to schedule followup visit in a week with a BMP. DISCHARGE INSTRUCTIONS: If your condition changes, contact their physician and/or return to the emergency department. Changes include, but are not limited to, shortness of breath, increased fatigue, excessive bleeding, weight loss or gain, unmanageable pain, signs or symptoms of infection. DISCHARGE DISPOSITION: Home. Dictated by CAMACHO Aponte for Fish Colmenares MD Addendum: Patient seen and examined by myself. Agree with CAMACHO note. It reflects my assessment and plan. Patient is being discharged in stable condition. Will be seen by PCP in a week. cc: CAMACHO Aponte MD Joel A. Powell, MD [facility]
== END 2019-05-12 13:15 | disposition home or self-care (01) | DRG 439 ==
LOC: P.ED 13:03 → SUATTDRO 19:31 → P.ICU 19:31 → P.MEDSURG 05-11 11:35
PROVIDERS: ATTEND Internal Medicine